=== PATIENT | male | born 1960 | race Two or more races ===

== ENCOUNTER 2017-01-29 15:21 | Emergency (ER) | payer OTHER ==
[2017-01-29 15:33] VITALS: RESP 18
[2017-01-29] MEDS ORDERED: KETOROLAC 30 MG/ML 1 ML VIAL IM STA (15:50)
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
[2017-01-29] MEDS ORDERED: ACET/COD 300 MG/30 MG STARTER PACK 6 TAB BTL PO STA (16:25)
--- NOTE | 2017-01-29 16:27 | ED ---
Medical Decision Making - Medical Decision Making When I discussed this case with Dr. Mack, he noted on agitated and seems to be some abnormalities of the medial tibia. Patient is tender over the entire any. Although radiologist called there to be a fracture Dr. Mack was with the patient in any immobilizer, gram for crutches and given a short course of pain medicine until he can follow-up with orthopedic. Patient agrees treatment plan will comply. Return parameters Discussed. Disposition Clinical Impression: Chronic pain, Effusion, right knee Disposition: HOME SELF-CARE Condition: Good Instructions: Knee Sprain (ED) Additional Instructions: Patient advised to follow up with your primary care provider as well as orthopedic physician. Patient should return to the emergency department if any alarming signs or symptoms occur. Take the pain medication as prescribed. Prescriptions: Cyclobenzaprine [Flexeril] 10 mg PO TID #15 tab Ibuprofen [Motrin] 800 mg PO BID #20 tab Referrals: Tonya Boudreaux MD [Primary Care Provider] - 1-2 days Time of Disposition: 16:27 Procedures - Orthopedic Splinting/Casting Injury #1 Side: right Lower Extremity Injury Location: knee Lower Extremity Immobilizer: knee immobilizer
[2017-01-29 16:39] VITALS: BP 120/78; PULSE 78; TEMP 97.3
== END 2017-01-29 16:39 | disposition home or self-care (01) ==
LOC: EC 15:21
DX: M25.461 Effusion, right knee (principal); G89.29 Other chronic pain; M54.2 Cervicalgia; M54.9 Dorsalgia, unspecified; Z96.652 Presence of left artificial knee joint; Z91.041 Radiographic dye allergy status; Z79.899 Other long term (current) drug therapy
CPT/HCPCS: 73562; 99284; 96372; J1885